=== PATIENT | male | born 1965 | race Caucasian/White ===

== ENCOUNTER 2018-04-11 08:39 | Emergency (ER) | payer OTHER ==
[~2018-04-11] VITALS: Ht 180.3 cm; Wt 77.1 kg
[2018-04-11 08:42] VITALS: BP 154/101
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
[2018-04-11] MEDS ORDERED: NAPR-514 PO (08:58)
[2018-04-11] MEDS ORDERED: OXYC10TA PO (09:03)
[2018-04-11] MEDS ORDERED: TRAM50TA PO (09:04)
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
== END 2018-04-11 09:45 | disposition home or self-care (01) ==
LOC: ER 08:39
DX: M54.2 Cervicalgia (principal); M54.89 Other dorsalgia; V59.59XA Passenger in pick-up truck or van injured in collision with other motor vehicles in traffic accident, initial encounter; Y93.89 Activity, other specified; Y99.8 Other external cause status; Y92.488 Other paved roadways as the place of occurrence of the external cause
CPT/HCPCS: 72040; 99284